=== PATIENT | female | born 1985 | race Caucasian/White ===

== ENCOUNTER → 2019-04-20 | Day surgery (SDC) | payer BC ==
[~2019-04-20] VITALS: Ht 162.5 cm; Wt 60.8 kg
[~2019-04-20] MED LIST: METHERGINE0.2 M1 PO; Motrin,Rufen800 MG PO; PRENATABS RX T1 EACH PO
[2019-04-20 08:32] VITALS: BP 148/79
[2019-04-20 10:29] VITALS: BP 116/81
[2019-04-20 10:44] VITALS: BP 118/85
[2019-04-20 10:59] VITALS: BP 126/75
== END | disposition home or self-care (01) ==
LOC: SDC 04-19 12:30
DX: O02.1 Missed abortion (principal); J45.909 Unspecified asthma, uncomplicated; Z87.891 Personal history of nicotine dependence; Z98.890 Other specified postprocedural states; Z88.8 Allergy status to other drugs, medicaments and biological substances; Z79.899 Other long term (current) drug therapy